=== PATIENT | female | born 1990 | race Caucasian/White ===

== ENCOUNTER 2017-02-06 14:34 | Inpatient (IN) | payer BC ==
[~2017-02-06] VITALS: Ht 157.5 cm; Wt 72.3 kg
[~2017-02-06 14:34] MED LIST: DEPO-PROVER150 MG/M1 IM; IRON325 M1 PO; LOVENOX 3030 MG/0.3 SQ; PRENATAL1 TA1 PO
[2017-03-30] VITALS (65 sets, daily range): BP systolic 101–139; BP diastolic 52–87; PULSE 70–115; TEMP 97.6–99.5
[2017-03-30] MEDS ORDERED: PRENATAL1 TA7 PO (07:42)
[2017-03-30] MEDS ORDERED: COLACE 100100 MG/CAP PO (07:42)
[2017-03-30] MEDS ORDERED: GAS-X ULTRA ST180 MG PO (07:42)
[2017-03-30] MEDS ORDERED: LOVENOX 4040 MG/0.4 SQ (07:43)
[2017-03-30] MEDS ORDERED: PROFE180 MG PO (07:43)
[2017-03-30 08:10] LABS: HEMATOCRIT 37.4 % (37.0-47.0); MEAN CELL VOLUME 90 fl (80.0-100.0); MEAN CORPUSCULAR HEMOGLOBIN 31 pg (27.0-31.0); MEAN CORPUSCULAR HGB CONC 35 g/dl (33.0-37.0); MEAN PLATELET VOLUME 11.2 fl (7.4-10.4); PLATELET COUNT 149 K/mm3 (130-400); RED BLOOD COUNT 4.15 M/mm3 (4.10-5.30); WHITE BLOOD COUNT 10.8 K/mm3 (4.8-10.8)
[2017-03-30 08:14] LABS: ADD PATHOLOGY DIFF REVIEW NO
[2017-03-30 09:13] LABS: BAND 10 % (0-10); EOSINOPHIL 2 % (0-4); LYMPHOCYTE 18 % (20.0-51.0); NEUTROPHILS 64 % (42.0-75.2); PLATELET ESTIMATE NORMAL (NORMAL); TOTAL CELLS COUNTED 100
[2017-03-31] VITALS (17 sets, daily range): BP systolic 107–130; BP diastolic 56–82; PULSE 82–141; TEMP 97.3–98.1
[2017-03-31] MEDS ORDERED: IBU800 M1 PO (10:34)
[2017-04-01 03:40] VITALS: BP 118/66; PULSE 90; TEMP 97.6
[2017-04-01 09:00] VITALS: BP 119/62; PULSE 93; TEMP 97.6
[2017-04-01 17:15] VITALS: BP 115/77; PULSE 98; TEMP 97.7
[2017-04-01 20:00] VITALS: BP 105/65; PULSE 71; TEMP 97.9
[2017-04-02 09:20] VITALS: BP 114/72; PULSE 89; TEMP 98.3
== END 2017-04-02 15:35 | disposition home or self-care (01) | DRG 775 ==
LOC: LDR 03-30 06:36 → OB 03-31 04:15 → LDR 04-01 14:34 → OB 04-02 15:35
PROVIDERS: Obstetrics & Gynecology
PROC: 10D07Z6 Extraction of Products of Conception, Vacuum, Via Natural or Artificial Opening (ICD-10-PCS; principal; 2017-03-31)
PROC: 0KQM0ZZ Repair Perineum Muscle, Open Approach (ICD-10-PCS; 2017-03-31)
PROC: 3E033VJ Introduction of Other Hormone into Peripheral Vein, Percutaneous Approach (ICD-10-PCS; 2017-03-31)
DX: O99.284 Endocrine, nutritional and metabolic diseases complicating childbirth (principal); E72.12 Methylenetetrahydrofolate reductase deficiency; O70.1 Second degree perineal laceration during delivery; O69.81X0 Labor and delivery complicated by cord around neck, without compression, not applicable or unspecified; O75.81 Maternal exhaustion complicating labor and delivery; O99.824 Streptococcus B carrier state complicating childbirth; Z3A.39 39 weeks gestation of pregnancy; Z37.0 Single live birth
CPT/HCPCS: J2405; J2540; J2590; J2795; J7060; J7120

== ENCOUNTER 2018-08-15 22:19 | Emergency (ER) | payer SELFPAY ==
[~2018-08-15] VITALS: Ht 157.5 cm; Wt 61.4 kg
[~2018-08-15 22:19] MED LIST changes: +COLACE 100100 MG/CAP PO; +GAS-X ULTRA ST180 MG PO; +IBU800 M1 PO; +LOVENOX 4040 MG/0.4 SQ; +PRENATAL1 TA7 PO; +PROFE180 MG PO
[2018-08-15 22:53] VITALS: BP 133/78; TEMP 100.3
[2018-08-16] MEDS ORDERED: AMOXICILLIN 8751 TAB PO (00:31)
[2018-08-16 01:06] VITALS: PULSE 96
[2018-08-17] MEDS ORDERED: ZYRTEC 10MG10 MG PO (21:24)
[2018-08-17] MEDS ORDERED: NEXPLANON68 MG ID (23:53)
== END 2018-08-16 01:06 | disposition home or self-care (01) ==
LOC: COL.ER 22:19
DX: S51.851A Open bite of right forearm, initial encounter (principal); W55.01XA Bitten by cat, initial encounter; Y92.009 Unspecified place in unspecified non-institutional (private) residence as the place of occurrence of the external cause

== ENCOUNTER 2018-08-17 20:24 | Inpatient (IN) | payer SELFPAY ==
[~2018-08-17] VITALS: Ht 157.5 cm; Wt 63.0 kg
[~2018-08-17 20:24] MED LIST changes: +AMOXICILLIN 8751 TAB PO
[2018-08-17] MEDS ORDERED: ZYRTEC 10MG10 MG PO (21:24)
[2018-08-17 21:32] LABS: BASO # 0.1 (0.0-0.2); BASO % 0.4 % (0.0-2.0); EOS # 0.5 (0.0-0.7); EOS % 3.9 % (0-4.0); GRAN # 8.1 (1.4-6.5); GRAN % 66.2 % (42.2-75.2); HEMATOCRIT 42.6 % (37.0-47.0); HEMOGLOBIN 14.6 g/dl (12.5-16.0); LYMPH # 2.9 (1.2-3.4); MEAN CELL VOLUME 89 fl (80.0-100.0); MEAN CORPUSCULAR HEMOGLOBIN 30 pg (27.0-31.0); MEAN CORPUSCULAR HGB CONC 34 g/dl (33.0-37.0); MEAN PLATELET VOLUME 10.2 fl (7.4-10.4); MONO # 0.6 (0.1-0.6); MONO % 5.1 % (1.7-9.3); PLATELET COUNT 225 K/mm3 (130-400); RED BLOOD COUNT 4.81 M/mm3 (4.10-5.30); REDCELL DISTRIBUTION WIDTH-CV 11.7 % (11.5-14.5)
[2018-08-17 21:40] LABS: ALBUMIN 4.7 gm/dL (3.5-5.0); BILIRUBIN,TOTAL 0.4 mg/dL (0.0-1.0); C-REACTIVE PROTEIN 2.5 mg/dL (0.0-0.9); CALCIUM 9.9 mg/dL (8.4-10.2); CREATININE, serum 0.72 (0.52-1.25); POTASSIUM 3.7 mmol/L (3.4-5.0); TOTAL PROTEIN 8.3 gm/dL (6.4-8.2)
[2018-08-17 21:59] LABS: ERYTHROCYTE SEDIMENTATION RATE 18 mm/hr (0-20)
--- NOTE | 2018-08-17 22:50 | NUR ---
Pt arrived to room 343, transferred via wheelchair by ED staff. Pt awake, a&o, ind, cooperative c cares. Pt reports pain to RUE; noted reddness/edema r/t cat bite/scratch. Pt denies any other c/o. INT patent. Family at bedside. Pt/family oriented to room, unit policies et current POC. Questions invited et answered, pt verbalizes understanding. No needs at this time. Call light in reach, will continue c admit process.
[2018-08-17 23:30] VITALS: BP 110/64; PULSE 87; TEMP 98.2
[2018-08-17] MEDS ORDERED: NEXPLANON68 MG ID (23:53)
[2018-08-18] VITALS (7 sets, daily range): BP systolic 94–110; BP diastolic 44–64; PULSE 64–89; TEMP 97.7–98.5
--- NOTE | 2018-08-18 06:10 | NUR ---
Pt resting in bed, condtion unchanged. Pt has rested well since admit c very few needs. Pain well controlled c PRN [place] x2 doses. IVF's et abx infusing per orders. No needs at this time. Call light in reach.
[2018-08-18 06:13] LABS: BASO # 0.1 (0.0-0.2); BASO % 0.6 % (0.0-2.0); EOS # 0.4 (0.0-0.7); EOS % 4.2 % (0-4.0); GRAN # 5.4 (1.4-6.5); GRAN % 52.2 % (42.2-75.2); LYMPH # 3.7 (1.2-3.4); LYMPH % 35.9 % (20.0-51.0); MEAN CELL VOLUME 90 fl (80.0-100.0); MEAN CORPUSCULAR HGB CONC 34 g/dl (33.0-37.0); MEAN PLATELET VOLUME 10.3 fl (7.4-10.4); MONO # 0.7 (0.1-0.6); MONO % 6.7 % (1.7-9.3); PLATELET COUNT 194 K/mm3 (130-400); RED BLOOD COUNT 4.07 M/mm3 (4.10-5.30); REDCELL DISTRIBUTION WIDTH-CV 11.9 % (11.5-14.5)
[2018-08-18 06:26] LABS: HEMATOCRIT 36.7 % (37.0-47.0); HEMOGLOBIN 12.5 g/dl (12.5-16.0); MEAN CORPUSCULAR HEMOGLOBIN 31 pg (27.0-31.0)
[2018-08-18 06:27] LABS: CALCIUM 8.4 mg/dL (8.4-10.2); CREATININE, serum 0.82 (0.52-1.25); POTASSIUM 4.1 mmol/L (3.4-5.0)
--- NOTE | 2018-08-18 10:20 | NUR ---
Initial visit; Patient thanked [employer] Stretcher for looking in on her and offering God's blessings.
--- NOTE | 2018-08-18 14:16 | NUR ---
SW met with patient to discuss discharge planning. Patient lives independently at home by herself. Patient's PCP is Dr Tom and she obtains prescriptions from [facility]. Patient is independent with ADLs and she does not use any DME or home health services. Patient does not have a DPOA and she is not interested in completing one at this time. SW does not anticipate any discharge needs.
--- NOTE | 2018-08-18 21:20 | NUR ---
PATIENT IN BED, REPORTS PAIN 6/10 TO RIGHT HAND/ARM, MEDICATED WITH NORCO 5/325 1 TAB AT THIS TIME. SL TO LEFT FOREARM WITHOUT REDNESS OR SWELLING. HAS NUMEROUS SCRATCHES AND PUNCTURE SITES TO RIGHT HAND AND ARM FROM HER CAT. SMALL ICE PACK PROVIDED FOR RIGHT INNER FOREARM REDNESS.
[2018-08-19 04:00] VITALS: BP 92/51; PULSE 69; TEMP 97.8
[2018-08-19 06:09] LABS: BASO # 0.1 (0.0-0.2); BASO % 0.7 % (0.0-2.0); EOS # 0.4 (0.0-0.7); EOS % 4.6 % (0-4.0); GRAN # 4.2 (1.4-6.5); GRAN % 52.3 % (42.2-75.2); LYMPH % 37.3 % (20.0-51.0); MEAN CELL VOLUME 91 fl (80.0-100.0); MEAN CORPUSCULAR HEMOGLOBIN 30 pg (27.0-31.0); MEAN CORPUSCULAR HGB CONC 33 g/dl (33.0-37.0); MEAN PLATELET VOLUME 10.2 fl (7.4-10.4); MONO # 0.4 (0.1-0.6); MONO % 4.7 % (1.7-9.3); PLATELET COUNT 184 K/mm3 (130-400); RED BLOOD COUNT 3.95 M/mm3 (4.10-5.30); REDCELL DISTRIBUTION WIDTH-CV 11.8 % (11.5-14.5)
[2018-08-19 06:25] LABS: CALCIUM 8.7 mg/dL (8.4-10.2); CREATININE, serum 0.67 (0.52-1.25); POTASSIUM 4.4 mmol/L (3.4-5.0)
[2018-08-19 07:27] VITALS: BP 96/50; PULSE 64; TEMP 97.7
[2018-08-19] MEDS ORDERED: FLAGYL500 MG PO (10:27)
[2018-08-19] MEDS ORDERED: CEPHALEXIN500 M1 PO (10:29)
[2018-08-19 10:40] VITALS: BP 112/59; PULSE 86; TEMP 97.6
--- NOTE | 2018-08-19 12:55 | NUR ---
Patient is discharging home. Discharge instructions discussed with patient. No questions verbalized. INT discontinued. Explained when follow up appointment is and that she has prescriptions berry picker. Copies of discharge instructions sent with patient. All belongings packed up and sent with patient. Patient walked out by Yasmin LALA.
== END 2018-08-19 12:55 | disposition home or self-care (01) | DRG 603 ==
LOC: COL.ER 20:24 → SURG 21:43
PROVIDERS: Emergency Medicine; Nurse Practitioner Family; Physician Assistant; ADMIT Family Medicine
DX: L03.113 Cellulitis of right upper limb (principal); F17.210 Nicotine dependence, cigarettes, uncomplicated; W55.01XA Bitten by cat, initial encounter
CPT/HCPCS: 99222-AI; 99239; J0295; J0696; J1650; J2543; J3010; J7030